=== PATIENT | female | born 1985 | race Caucasian/White ===

== ENCOUNTER 2024-02-02 13:53 | Emergency (ER) | payer OTHER, SELFPAY ==
[2024-02-02 13:58] VITALS: BP 146/81
--- NOTE | 2024-02-02 13:59 | ED.GENMED ---
ED Provider Triage
<Ben Heredia PA-C - Last Filed: 02/02/24 14:01>
-
Patient seen by provider in Triage?: Seen in Triage
39-year-old female currently 15 weeks presents with onset of nausea feeling weak and lightheaded and vomiting this morning. Has vomited several times. Seen at the urgent care and sent here. She denies any significant abdominal pain.
Vital signs are stable. Looks somewhat dry on exam at triage. Ordered labs fluids and Zofran.
Patient seen by medical provider at triage but does warrant further assessment
History of Present Illness
<Ben Heredia PA-C - Last Filed: 02/02/24 14:01>
General
Chief Complaint: Weakness
Time Seen by Provider: 02/02/24 16:41
<Ellen Rich MD - Last Filed: 02/02/24 22:16>
General
Source: patient
Exam Limitations: none
Nursing documentation reviewed up to this point in time: agreed with
History of Present Illness
History of Present Illness:
Patient is a pleasant 39-year-old female who is about 15 weeks and reports she developed nausea and vomiting yesterday. Patient reports she has had mild constipation but no diarrhea. She denies fever but states that she feels very
fatigued and lightheaded. She was evaluated at urgent care earlier today and given a prescription for a rectal antiemetic but was unable to fill it in her pharmacy. She reports they also did a COVID and flu swab which both came back negative.
Patient presents here due to continued nausea. Patient denies sick contacts. She denies all abdominal pain. She denies vaginal bleeding. She denies shortness of breath and chest pain.
Past History
<Ellen Rich MD - Last Filed: 02/02/24 22:16>
Past History
ED Past Medical History: Psychiatric (Anxiety)
ED Past Surgical History: Other ([place] teeth)
Social History
Tobacco: Non-smoker
Alcohol: None
Drug: None
Personal:
Living: with family
Employment: Other
Family History
Family History: Other
Review of Systems
<Ellen Rich MD - Last Filed: 02/02/24 22:16>
Review of Systems
Allergies reviewed?: Yes
All Other Systems: ROS reviewed and negative except as documented in HPI and ROS
Constitutional: Reports fatigue
EENT: Reports no symptoms
Respiratory: Reports no symptoms
Cardiac: Reports no symptoms
ABD/GI: Reports nausea, vomiting, constipated and anorexia
: Reports no symptoms
Musculoskeletal: Reports no symptoms
Skin: Reports no symptoms
Neurological: Reports no symptoms
Endocrine: Reports no symptoms
Hematologic/Lymphatic: Reports no symptoms
Psychiatric: Reports no symptoms
Phy Exam
<Ellen Rich MD - Last Filed: 02/02/24 22:16>
Physical Exam
Physical Exam:
Physical Exam
General: no apparent distress, not acutely ill. Nontoxic, conversational and smiling
Neck: supple. no meningeal signs. normal posterior pharynx
Heart: s1/s2 regular rate and rhythm, no murmur. equal radial pulses.
Lungs: no acute respiratory distress. clear bilaterally
Abdomen: Soft throughout. Gravid. Normal bowel sounds. No right upper quadrant or right lower quadrant tenderness. Nontender throughout
Neuro: alert and oriented. no focal neurological deficits
Skin: no rash
Psychiatric: well kept. interactive and cooperative
Extremities: no edema. no calf tenderness. negative homans. good distal pulses
Course
<Ben Heredia PA-C - Last Filed: 02/02/24 14:01>
Orders/Labs/Results
Orders:
Orders
02/02/24 13:57
0.9% Sodium Chloride 1000 ml [Nss] 1,000 ml IV BOLUS
02/02/24 13:59
Ondansetron Injectable [Zofran] 4 mg IV NOW STA
Test Result ONCE
02/02/24 14:05
Beta HCG Quantitative Urgent
Complete Blood Count/With Diff Urgent
Comprehensive Metabolic Panel Urgent
Lipase Urgent
TSH Urgent
Comment: ADD ON
02/02/24 14:27
Add On- LAB Urgent
Tests Added?: hcg quant
02/02/24 16:14
Urinalysis Reflex To Culture Urgent
Date Specimen was Collected: 02/02/24
Time Specimen was Collected: 16:12
Urine Microscopic Reflex Cult Urgent
Urine Culture Urgent
KAL Source: U
Specimen Description:
Date Specimen was Collected: 02/02/24
Time Specimen was Collected: 16:12
02/02/24 17:04
Add On- LAB Urgent
Tests Added?: TSH
Ondansetron Injectable [Zofran] 4 mg IV NOW STA
Abnormal Lab Results
02/02/24 02/02/24
14:05 16:14
WBC 18.1 H 10^3/uL
(4.8-10.8)
Abs Immat Gran (auto) 0.1 H 10^3/uL
(0-0.05)
Absolute Neuts (auto) 17.4 H 10^3/uL
(1.4-6.5)
Absolute Lymphs (auto) 0.3 L 10^3/uL
(1.2-3.4)
Neutrophils % 95.7 H %
(42.2-75.2)
Lymphocytes % 1.4 L %
(20.5-51.1)
Creatinine 0.5 L mg/dL
(0.6-1.0)
Glucose 105 H mg/dl
(70-99)
TSH 0.34 L uIU/ml
(0.47-4.68)
Ur Occult Blood Reflex 2+ A
(Negative)
Urine RBC 11-15 A /HPF
(0-2)
Urine Bacteria (Reflex) Many A
(Negative)
02/02/24 14:05
02/02/24 14:05
Vital Signs
Initial and Last Documented VS:
Initial Vital Signs
Temp Pulse Resp BP Pulse Ox
98.2 F 102 16 146/81 100
02/02/24 13:58 02/02/24 13:58 02/02/24 13:58 02/02/24 13:58 02/02/24 13:58
Last Documented Vital Signs
Temp Pulse Resp BP Pulse Ox
97.9 F 102 17 127/74 100
02/02/24 16:10 02/02/24 18:57 02/02/24 16:04 02/02/24 18:57 02/02/24 18:57
<Ellen Rich MD - Last Filed: 02/02/24 22:16>
Orders/Labs/Results
Orders:
Orders
02/02/24 13:57
0.9% Sodium Chloride 1000 ml [Nss] 1,000 ml IV BOLUS
02/02/24 13:59
Ondansetron Injectable [Zofran] 4 mg IV NOW STA
Test Result ONCE
02/02/24 14:05
Beta HCG Quantitative Urgent
Complete Blood Count/With Diff Urgent
Comprehensive Metabolic Panel Urgent
Lipase Urgent
TSH Urgent
Comment: ADD ON
02/02/24 14:27
Add On- LAB Urgent
Tests Added?: hcg quant
02/02/24 16:14
Urinalysis Reflex To Culture Urgent
Date Specimen was Collected: 02/02/24
Time Specimen was Collected: 16:12
Urine Microscopic Reflex Cult Urgent
Urine Culture Urgent
KAL Source: U
Specimen Description:
Date Specimen was Collected: 02/02/24
Time Specimen was Collected: 16:12
02/02/24 17:04
Add On- LAB Urgent
Tests Added?: TSH
Ondansetron Injectable [Zofran] 4 mg IV NOW STA
Abnormal Lab Results
02/02/24 02/02/24
14:05 16:14
WBC 18.1 H 10^3/uL
(4.8-10.8)
Abs Immat Gran (auto) 0.1 H 10^3/uL
(0-0.05)
Absolute Neuts (auto) 17.4 H 10^3/uL
(1.4-6.5)
Absolute Lymphs (auto) 0.3 L 10^3/uL
(1.2-3.4)
Neutrophils % 95.7 H %
(42.2-75.2)
Lymphocytes % 1.4 L %
(20.5-51.1)
Creatinine 0.5 L mg/dL
(0.6-1.0)
Glucose 105 H mg/dl
(70-99)
TSH 0.34 L uIU/ml
(0.47-4.68)
Ur Occult Blood Reflex 2+ A
(Negative)
Urine RBC 11-15 A /HPF
(0-2)
Urine Bacteria (Reflex) Many A
(Negative)
02/02/24 14:05
02/02/24 14:05
Vital Signs
Initial and Last Documented VS:
Initial Vital Signs
Temp Pulse Resp BP Pulse Ox
98.2 F 102 16 146/81 100
02/02/24 13:58 02/02/24 13:58 02/02/24 13:58 02/02/24 13:58 02/02/24 13:58
Last Documented Vital Signs
Temp Pulse Resp BP Pulse Ox
97.9 F 102 17 127/74 100
02/02/24 16:10 02/02/24 18:57 02/02/24 16:04 02/02/24 18:57 02/02/24 18:57
<Ellen Rich MD - Last Filed: 02/02/24 22:16>
MDM/Problems Addressed
Differential Diagnosis Includes:
Biliary colic, viral syndrome, gastritis
MDM/Problems Addressed:
Patient presents with acute nausea and vomiting and feelings of lightheadedness
<Ellen Rich MD - Last Filed: 02/02/24 22:16>
*Pulse Oximetry
Patient hypoxic: no
*EKG
Interpreted by ED Provider?: NA
*Neurosurgical Nurse Interpretation
Rate: normal
Interpretation: normal
Rhythm: sinus
*Critical Care Note
Total Time (30-74mins, 75-104mins- exclusive of procedures): Not Applicable
Data Reviewed
Source: patient and spouse
<Ellen Rich MD - Last Filed: 02/02/24 22:16>
Patient Management
Social determinants of health affecting care: Living situation and Strong social support
Escalation/DeEscalation of care consider admission/obs:
Patient remains well and comfortable. She has not had any vomiting in the ED. Her abdomen remains nontender and soft so there is no sign of biliary colic. Urine does not look suspicious for pyelonephritis or UTI. Patient likely has viral illness
given her nausea, vomiting, and fatigue.
ED Attending Note
<Ben Heredia PA-C - Last Filed: 02/02/24 14:01>
-
Portions of this chart may have been created with voice recognition software.� Occasional wrong word or��sound alike� substitutions may have occurred due to the inherent limitations of voice recognition software.
Discharge Plan
Departure
Patient Disposition: Home (Routine Discharge)
Date of Disposition: 02/02/24
Time of Disposition: 18:52
Patient with high blood pressure during this ER visit?: No
Condition: Good
Covid-19: Not Applicable
Discharge Problem:
Nausea & vomiting
Instructions: Acute Nausea and Vomiting
Prescriptions:
New
ondansetron 4 mg tablet,disintegrating
4 mg PO TID PRN (Reason: nausea and vomiting) Qty: 14 0RF
Referrals:
Anam Hernández MD [Family Provider] -
Interventions
Interventions:
*Risk Screen - Suicide Last Done: 02/02/24 14:01
*General Assessment Last Done: 02/02/24 16:07
*Neglect/Abuse Screening Last Done: 02/02/24 14:01
ED- Fall Risk Assessment Last Done: 02/02/24 16:08
*ED COVID-19 Vaccine History Last Done: 02/02/24 14:02
*Nursing Disposition Last Done: 02/02/24 19:03
ED- Cardiac Assessment Last Done: 02/02/24 16:09
ED- Neurological Assessment Last Done: 02/02/24 16:09
ED- Pulmonary Assessment Last Done: 02/02/24 16:09
Discharge Date and Time
Discharge Date/Time: 02/02/24 19:06
Print Language: JAPANESE
[2024-02-02 14:14] LABS: % Basophils 0.1 % (0-2); % Eosinophils 0.2 % (0-6); % Immature Granulocytes 0.5 % (0-0.5); % Lymphocytes 1.4 % (20.5-51.1); % Monocytes 2.1 % (1.7-9.3); % Neutrophils 95.7 % (42.2-75.2); Absolute Immature Granulocytes 0.1 10^3/uL (0-0.05); Absolute Lymphocytes 0.3 10^3/uL (1.2-3.4); Absolute Monocytes 0.4 10^3/uL (0.1-0.6); Absolute Neutrophils 17.4 10^3/uL (1.4-6.5); Hematocrit 37.9 % (37.0-47.0); Hemoglobin 13.4 g/dL (12.0-16.0); Mean Corp Hgb Conc. 35.4 g/dL (33.0-37.0); Mean Corpuscular Hgb 30.6 pg (27.0-31.0); Mean Corpuscular Volume 86.5 fL (81.0-99.0); Mean Platelet Volume 9.9 fL (7.4-10.4); Nucleated Red Blood Cells % 0 %; Platelet Count 264 10^3/uL (130-400); Red Blood Cell Count 4.38 10^6/uL (4.20-5.40); Red Cell Dist. Width 12.9 % (11.5-14.5); White Blood Cell Count 18.1 10^3/uL (4.8-10.8)
[2024-02-02 14:31] LABS: ALT (SGPT) 17 U/L (0-35); AST (SGOT) 21 U/L (14-36); Albumin 4.2 g/dl (3.5-5.0); Alkaline Phosphatase 60 U/L (38-126); Blood Urea Nitrogen 13 mg/dl (7-17); Carbon Dioxide 23 mmol/L (22-30); Chloride 101 mmol/L (98-107); Glucose 105 mg/dl (70-99); Potassium 3.8 mmol/L (3.5-5.1); Sodium 135 mmol/L (135-145); Total Bilirubin 0.4 mg/dl (0.2-1.3); Total Protein 7.3 g/dl (6.3-8.2); eGFR > 60.00
[2024-02-02 14:48] LABS: Lipase 67 U/L (23-300)
[2024-02-02 16:04] VITALS: BP 126/69
[2024-02-02 16:06] VITALS: BMI 33.9
[2024-02-02] MEDS: NSS 1000 IV (16:30)
[2024-02-02 16:37] LABS: Urine Albumin Negative (Neg - Trace); Urine Bilirubin Negative (Negative); Urine Character Clear (Clear); Urine Color Yellow; Urine Glucose Negative (Negative); Urine Ketone Negative (Negative); Urine Leukocyte Negative (Negative); Urine Nitrite Negative (Negative); Urine Occult Blood 2+ (Negative); Urine Urobilinogen Negative (Neg - 1+)
[2024-02-02 16:50] LABS: Urine Mucus Few; Urine White Cell 0-2 /HPF (0-5)
[2024-02-02 16:51] LABS: Urine Bacteria Many (Negative); Urine Hyaline Cast 0-2 /LPF (0-2)
[2024-02-02 17:00] VITALS: BP 127/70
[2024-02-02] MEDS: ZOFRAN 4 MG IV (17:09)
[2024-02-02 18:00] VITALS: BP 120/65
[2024-02-02 18:18] LABS: TSH 0.34 uIU/ml (0.47-4.68)
[2024-02-02 18:57] VITALS: BP 127/74
== END 2024-02-02 19:06 | disposition home or self-care (01) ==
LOC: EMR 13:53
PROVIDERS: Physician Assistant; EMERGENCY PHYSICIAN Emergency Medicine; FAMILY PHYSICIAN Internal Medicine
DX: O21.9 Vomiting of pregnancy, unspecified (principal); Z3A.15 15 weeks gestation of pregnancy
CPT/HCPCS: 99282; 96374; 96361; 80053; 81003; 81015; 83690; 84443; 84702; 85025; 87086